=== PATIENT | male | born 1990 | race African-American/Black ===

== ENCOUNTER 2017-12-08 11:16 | Emergency (ER) | payer OTHER ==
[~2017-12-08] VITALS: Ht 188 cm; Wt 103.9 kg
[2017-12-08 11:16] VITALS: BP 130/78
== END 2017-12-08 11:50 | disposition home or self-care (01) ==
LOC: ER 11:18
DX: S91.311D Laceration without foreign body, right foot, subsequent encounter (principal); Z88.0 Allergy status to penicillin; Z60.2 Problems related to living alone
CPT/HCPCS: 99281; A4606; Z7610; Z7502